=== PATIENT | female | born 2005 | race Caucasian/White ===

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

== ENCOUNTER 2024-07-18 18:55 | Emergency (ER) | payer OTHER, SELFPAY ==
[2024-07-18 19:00] VITALS: BP 143/91; PULSE 91; RESP 18; TEMP 37.3; O2SAT 100
--- NOTE | 2024-07-18 19:32 | ED_ITS ---
HPI - Dental/Oral General Chief complaint: Neck Pain/Injury Stated complaint: left side jaw and neck stiffness Time Seen by Provider: 07/18/24 19:32 History of Present Illness HPI Narrative: 18-year-old female presented for complaint of left jaw pain and neck stiffness. Onset today. States that jaw feels swollen in the neck feels tight. Has not taken anything for pain. Endorses a history of jaw clicking at TMJ. Denies ear pain, tinnitus, dizziness, n/v/d/f/c. Related Data Home Medications ?Medication ?Instructions ?Recorded ?Confirmed ?Last Taken ?Type norethindrone (contraceptive) 0.35 mg 07/18/24 Unknown History mg tablet pravastatin 40 mg tablet mg 07/18/24 Unknown History Allergies Allergy/AdvReac Type Severity Reaction Status Date / Time amoxicillin Allergy Unknown Unknown Verified 07/18/24 19:05 Penicillins Allergy Rash Verified 07/18/24 19:05 tree nut Allergy Swelling Verified 07/18/24 19:05 Review of Systems 2 Review of Systems: CONSTITUTIONAL: Denies body aches, fever, chills, or sweats. EYES: Denies visual changes, redness, or discharge. ENT: reports left jaw and neck pain Denies rhinorrhea, congestion, or otalgia. CARDIOVASCULAR: Denies chest pain, palpitations, or edema. RESPIRATORY: Denies dyspnea. GASTROINTESTINAL: Denies abdominal pain, nausea, vomiting, or diarrhea. SKIN: Denies rash, itching, or wounds. MUSCULOSKELETAL: Denies back pain, joint pain, or myalgia. NEUROLOGIC: Denies headache PMFSH Past Medical History Medical History Hyperlipidemia Environmental allergies Surgical History Surgical History History of repair of ACL Family History Family History Father Hyperlipidemia Social History Social History Smoking status: Never smoker Alcohol intake: never Substance use: never Occupation/Education: student Gender identity (if verbalized by the patient): Female Spiritual care concerns: No Exam 2 Narrative: GENERAL: well-appearing, no acute distress. EYES: conjunctivae clear ENT: Mucous membranes moist. TM pearly yost with normal light reflex bilaterally; no tragal tenderness. Tender to palpation over left parotid gland. No apparent swelling,erythema or warmth. Oropharynx not erythematous without lesions. Tonsils not enlarged and without exudate. Nontender teeth/gumline. No drooling, no hoarseness, no trismus, uvula midline. No tripod positioning, hot potato voice, or soft palate swelling. NECK: Supple. No lymphadenopathy CHEST: Clear to auscultation, breath sounds equal. No respiratory distress, speaks in full sentences; talkative. HEART: Regular rate and rhythm. No murmur heard. SKIN: Warm, dry, no rash. NEURO: Alert and oriented x3. HENMT: Face images: 1. area of pain reported Course Course Emergency Course: Patient is aware of diagnosis, understands and agrees to treatment plan. Anticipatory guidance given. Patient agrees to follow-up as directed and is aware of reasons to seek care at the emergency department. Portions of this record may have been created with voice recognition software Level of Care: Express Care Visit Vital Signs Vital signs: Vital Signs Temperature 99.1 F 07/18/24 19:00 Pulse Rate 91 07/18/24 19:00 Respiratory Rate 18 07/18/24 19:00 Blood Pressure 143/91 H 07/18/24 19:00 Pulse Oximetry 100 07/18/24 19:00 Oxygen Delivery Room Air 07/18/24 19:00 Temperature 99.1 F 07/18/24 19:00 Pulse Rate 91 07/18/24 19:00 Respiratory Rate 18 07/18/24 19:00 Blood Pressure 143/91 H 07/18/24 19:00 Pulse Oximetry 100 07/18/24 19:00 Oxygen Delivery Room Air 07/18/24 19:00 MDM - Dental/Oral MDM Narrative Medical decision making narrative: Discussed physical exam findings Most consistent with sialoadenitis of the left parotid. Advised supportive measures and signs/symptoms to go to the ER. Pt is appropriate for outpt treatment and f/u. Differential Diagnosis Differential diagnosis: Likely gingival abscess, dental caries, toothache, dental abscess, fracture of tooth, aphthous ulcer and other (sialoadenitis, TMJ disorder, lymphadenopathy, otitis media) Discharge Plan Discharge Clinical Impression: Jaw pain Patient Disposition: Home, Self-Care Condition: Stable Instructions: Antibiotic Form, Sialoadenitis (ED) Additional Instructions: Stay well hydrated, apply moist heat to the area, massage the gland, and milk the duct Recommend tart, hard candies such as lemon drops may be helpful and should be used throughout the day No medications such as diphenhydramine (Benadryl) Moderate pain can generally be controlled with nonsteroidal antiinflammatory drugs (NSAIDs) such as ibuprofen, Motrin, Aleve, advil. Alternate with Tylenol 1000mg every 8 hours Take antibiotic as directed Follow up with your primary care provider in 1 week Go to the ER for worsening symptoms or concerns Patient Language: Telugu Prescriptions: New clindamycin HCl [Cleocin HCl] 300 mg capsule 300 mg PO Q8H 7 Days Qty: 21 0RF No Action pravastatin 40 mg tablet norethindrone (contraceptive) 0.35 mg tablet Follow-up/Referrals: Patricia,MD Sergio [Primary Care Provider] - Time of Disposition: 19:46
== END 2024-07-18 19:49 | disposition home or self-care (01) ==
PROVIDERS: Emergency Provider Nurse Practitioner Family; PCP Hospitalist
DX: R68.84 Jaw pain (principal); E78.5 Hyperlipidemia, unspecified
CPT/HCPCS: 99213; G0463